=== PATIENT | male | born 1940 | race Caucasian/White ===

== ENCOUNTER 2024-02-27 08:49 | Inpatient (IN) ==
[2024-02-27] MEDS: Furosemide 40 mg/4 ml IV VIAL IV SLOW PU ONE (11:16)
[2024-02-27 11:35] LABS: Hematocrit 26.8 % (38-53); Mean Corpuscular Hemoglobin 39.5 pg (27-33); Mean Corpuscular Hgb Conc 33.5 g/dL (31-36); Mean Corpuscular Volume 117.8 fL (80-97); Red Blood Count 2.28 10^6/uL (4.06-5.63); Red Cell Distribution Width 21.6 % (12-17)
[2024-02-27 12:19] LABS: ABS Lymphocytes 0.3 10^3/uL (1.0-4.8); ABS Monocytes 0.2 10^3/uL (0.0-1.1); ABS Neutrophils 1.5 10^3/uL (1.5-7.6); ABS Nucleated RBC 0.03 10^3/ul; Eosinophil % 0.7 %; Giant Platelets Present; Mean Platelet Volume 8.4 fL (7.5-11.2); Nucleated Red Blood Cells % 1.3 %/100WBC (0.0-0.8); Platelet Count 123 10^3/uL (150-450)
[2024-02-27 12:20] LABS: Albumin 4.1 g/dL (3.5-5.7); Albumin/Globulin Ratio 1.8 (1-3); Calcium 9.1 mg/dL (8.6-10.3); Creatinine, Serum 2.18 mg/dL (0.67-1.17); Globulin 2.3 g/dL (2-4); Potassium 3.8 mmol/L (3.5-5.0); Total Bilirubin 1.3 mg/dL (0.2-1.0); Total Protein 6.4 g/dL (6.4-8.9); eGFR CKD-EPI 29.3 (>60)
[2024-02-27] MEDS ORDERED: Al Hydrox/Mg Hydrox/Simet LIQ 30 ML UDC PO PRN (13:34)
[2024-02-27 13:37] LABS: High Sensitivity Troponin 1 Hr 108 pg/mL (<20)
[2024-02-27] MEDS: Bumetanide IV 0.25 MG/ML 4 ml VIAL (1 mg) IV SLOW PU ONE (16:04)
[2024-02-28 06:47] LABS: Calcium 8.8 mg/dL (8.6-10.3); Creatinine, Serum 1.93 mg/dL (0.67-1.17); Magnesium 2.9 mg/dL (1.9-2.7); eGFR CKD-EPI 33.9 (>60)
[2024-02-28 07:02] LABS: Potassium 3.4 mmol/L (3.5-5.0)
[2024-02-28] MEDS: Aspirin EC 81 mg TAB.EC (enteric coated) PO SCH (08:49)
[2024-02-28] MEDS: oxyCODONE SR 10 mg TAB PO SCH (08:50)
[2024-02-28] MEDS: Potassium Chloride LIQUID 20 MEQ/15 ML LIQUID PO ONE (08:51)
[2024-02-28] MEDS ORDERED: Bumetanide IV 0.25 MG/ML 4 ml VIAL (1 mg) IV SLOW PU SCH (09:00)
[2024-02-28] MEDS: Bumetanide IV 0.25 MG/ML 4 ml VIAL (1 mg) IV SLOW PU SCH (09:27)
[2024-02-29 08:05] LABS: Hematocrit 26.5 % (38-53); Hemoglobin 8.5 g/dL (13.2-16.3); Mean Corpuscular Hemoglobin 38.9 pg (27-33); Mean Corpuscular Hgb Conc 32.1 g/dL (31-36); Mean Corpuscular Volume 121.1 fL (80-97); Mean Platelet Volume 9.5 fL (7.5-11.2); Platelet Count 136 10^3/uL (150-450); Red Blood Count 2.19 10^6/uL (4.06-5.63); Red Cell Distribution Width 21.5 % (12-17); White Blood Count 2.5 10^3/uL (3.6-10.2)
[2024-02-29 08:41] LABS: ABS Lymphocytes 0.4 10^3/uL (1.0-4.8); ABS Monocytes 0.2 10^3/uL (0.0-1.1); ABS Neutrophils 1.9 10^3/uL (1.5-7.6); Anisocytosis 2+; Eosinophil % 0.8 %; Large Platelets Present; Lymphocyte % 15.2 %; Macrocytosis 3+; Nucleated Red Blood Cells % 0.1 %/100WBC (0.0-0.8)
[2024-02-29 08:43] LABS: Anion Gap 9 mmol/L (2-16); Blood Urea Nitrogen 76 mg/dL (6-24); CO2 Carbon Dioxide 31 mmol/L (22-32); Chloride 101 mmol/L (101-111); Creatinine, Serum 1.78 mg/dL (0.67-1.17); Glucose 102 mg/dL (70-100); Magnesium 2.7 mg/dL (1.9-2.7); Sodium 141 mmol/L (135-145); eGFR CKD-EPI 37.4 (>60)
[2024-02-29] MEDS: Chlorothiazide IV 500 mg VIAL IV SCH (09:16)
[2024-02-29] MEDS: Bumetanide IV 0.25 MG/ML 10 ml VIAL (2.5 mg) IV SLOW PU SCH (11:12)
[2024-02-29] MEDS: Bumetanide IV 0.25 MG/ML 4 ml VIAL (1 mg) IV SLOW PU SCH (11:12)
[2024-02-29] MEDS: KCL 20 MEQ/100 ML IVPREMIX 20 MEQ/100 ML BAG IV SCH (13:34)
[2024-03-01] MEDS: Bumetanide 10 MG/40 ML IV DRIP IV SCH (02:49)
[2024-03-01 07:19] LABS: Hematocrit 24.8 % (38-53); Hemoglobin 8.3 g/dL (13.2-16.3); Mean Corpuscular Hemoglobin 39.7 pg (27-33); Mean Corpuscular Hgb Conc 33.4 g/dL (31-36); Mean Corpuscular Volume 118.8 fL (80-97); Mean Platelet Volume 9.1 fL (7.5-11.2); Platelet Count 138 10^3/uL (150-450); Red Blood Count 2.08 10^6/uL (4.06-5.63); Red Cell Distribution Width 21.2 % (12-17); White Blood Count 2.8 10^3/uL (3.6-10.2)
[2024-03-01 07:57] LABS: Creatinine, Serum 1.88 mg/dL (0.67-1.17); Magnesium 2.6 mg/dL (1.9-2.7); Potassium 3.7 mmol/L (3.5-5.0)
[2024-03-01 09:01] LABS: ABS Basophils 0.1 10^3/uL (0.0-0.1); ABS Lymphocytes 0.3 10^3/uL (1.0-4.8); ABS Monocytes 0.3 10^3/uL (0.0-1.1); ABS Neutrophils 2.1 10^3/uL (1.5-7.6); Eosinophil % 0.4 %; Lymphocyte % 12.2 %; Nucleated Red Blood Cells % 0.2 %/100WBC (0.0-0.8)
[2024-03-01] MEDS: Bumetanide IV 10 MG in Premix IV 0 ML IV SCH (15:21)
[2024-03-01] MEDS: Albumin Human 25% 25 GM/100 ML BTL IV SCH (17:06)
[2024-03-01] MEDS: Polyethylene Glycol 3350 17 GM PACKET PO SCH (17:06)
[2024-03-01] MEDS: Potassium Chlor 20 meq TAB.ER PO ONE (17:07)
[2024-03-02] MEDS ORDERED: Lidocaine 2% JELLY 6 ML Topical TOPICAL PRN (02:46)
[2024-03-02] MEDS ORDERED: PAIN RELIEVING RUB (MENTHOL/SALICYLATE) 1 APPLIC TUBE TOPICAL PRN (02:54)
[2024-03-02 07:18] LABS: Albumin 4.1 g/dL (3.5-5.7); Albumin/Globulin Ratio 2.1 (1-3); Calcium 9.1 mg/dL (8.6-10.3); Creatinine, Serum 1.95 mg/dL (0.67-1.17); Magnesium 2.4 mg/dL (1.9-2.7); Potassium 3.6 mmol/L (3.5-5.0); Total Bilirubin 1.3 mg/dL (0.2-1.0); Total Protein 6.1 g/dL (6.4-8.9); eGFR CKD-EPI 33.5 (>60)
[2024-03-02 08:29] LABS: ABS Lymphocytes 0.4 10^3/uL (1.0-4.8); ABS Monocytes 0.2 10^3/uL (0.0-1.1); ABS Neutrophils 1.8 10^3/uL (1.5-7.6); ABS Nucleated RBC 0.01 10^3/ul; Anisocytosis 2+; Eosinophil % 0.6 %; Hematocrit 22.7 % (38-53); Hemoglobin 7.7 g/dL (13.2-16.3); Lymphocyte % 16.6 %; Macrocytosis 2+; Mean Corpuscular Hemoglobin 39.8 pg (27-33); Mean Corpuscular Hgb Conc 33.7 g/dL (31-36); Mean Corpuscular Volume 118.2 fL (80-97); Nucleated Red Blood Cells % 0.3 %/100WBC (0.0-0.8); Platelet Count 123 10^3/uL (150-450); Red Blood Count 1.92 10^6/uL (4.06-5.63); Red Cell Distribution Width 20.9 % (12-17); White Blood Count 2.4 10^3/uL (3.6-10.2)
[2024-03-02] MEDS: Potassium Chlor 20 meq TAB.ER PO ONE (09:29)
[2024-03-02] MEDS: KCL 20 MEQ/100 ML IVPREMIX 20 MEQ/100 ML BAG IV ONE (09:37)
[2024-03-02] MEDS ORDERED: NS 0.9% 1000 ml BAG 200 ML IV PRN (13:59)
[2024-03-02] MEDS ORDERED: NS 0.9% 1000 ml BAG 100 ML IV PRN (13:59)
[2024-03-02 15:16] LABS: Hepatitis B Surface Ab Not Immune (Immune)
[2024-03-02] MEDS: Heparin 1,000 UNIT/ML 10 ml (10,000 UNITS) CATHLAB/DIALYSIS DIALYSIS PRN (17:00)
[2024-03-03 08:08] LABS: Calcium 9.3 mg/dL (8.6-10.3); Creatinine, Serum 2.2 mg/dL (0.67-1.17); Magnesium 2.2 mg/dL (1.9-2.7); Potassium 4.1 mmol/L (3.5-5.0)
[2024-03-03 08:31] LABS: Hematocrit 23.2 % (38-53); Hemoglobin 7.5 g/dL (13.2-16.3); Mean Corpuscular Hgb Conc 32.3 g/dL (31-36); Mean Corpuscular Volume 120.6 fL (80-97); Mean Platelet Volume 9.9 fL (7.5-11.2); Platelet Count 113 10^3/uL (150-450); Red Blood Count 1.92 10^6/uL (4.06-5.63); Red Cell Distribution Width 20.8 % (12-17); White Blood Count 3.2 10^3/uL (3.6-10.2)
[2024-03-03 08:34] LABS: Anisocytosis 2+; Basophilic Stippling 1+; Macrocytosis 3+; Polychromasia 1+
[2024-03-03 08:37] LABS: ABS Lymphocytes 0.3 10^3/ul (1.0-4.8); ABS Monocytes 0.3 10^3/ul (0.0-1.1); ABS Neutrophils 2.6 10^3/ul (1.5-7.6)
[2024-03-03 13:04] LABS: Hepatitis B Surface Antigen Nonreactive (Nonreactive)
[2024-03-03] MEDS: Bumetanide IV 0.25 MG/ML 4 ml VIAL (1 mg) IV SLOW PU SCH (13:28)
[2024-03-04 06:52] LABS: Calcium 9.6 mg/dL (8.6-10.3); Creatinine, Serum 2.8 mg/dL (0.67-1.17); Hematocrit 22.3 % (38-53); Hemoglobin 7.4 g/dL (13.2-16.3); Magnesium 2.2 mg/dL (1.9-2.7); Mean Corpuscular Hemoglobin 39.7 pg (27-33); Mean Corpuscular Hgb Conc 33.2 g/dL (31-36); Mean Corpuscular Volume 119.4 fL (80-97); Mean Platelet Volume 9.7 fL (7.5-11.2); Platelet Count 98 10^3/uL (150-450); Potassium 4.2 mmol/L (3.5-5.0); Red Blood Count 1.87 10^6/uL (4.06-5.63); Red Cell Distribution Width 20.4 % (12-17); White Blood Count 3.1 10^3/uL (3.6-10.2); eGFR CKD-EPI 21.7 (>60)
[2024-03-04 08:25] LABS: ABS Basophils 0.1 10^3/uL (0.0-0.1); ABS Lymphocytes 0.4 10^3/uL (1.0-4.8); ABS Monocytes 0.4 10^3/uL (0.0-1.1); ABS Neutrophils 2.3 10^3/uL (1.5-7.6); Anisocytosis 2+; Eosinophil % 0.5 %; Lymphocyte % 12.9 %; Macrocytosis 2+; Nucleated Red Blood Cells % 0.1 %/100WBC (0.0-0.8)
[2024-03-04] MEDS: Albumin Human 25% 25 GM/100 ML BTL IV PRN (10:36)
[2024-03-05 05:51] LABS: ABS Lymphocytes 0.4 10^3/uL (1.0-4.8); ABS Monocytes 0.3 10^3/uL (0.0-1.1); ABS Neutrophils 2.4 10^3/uL (1.5-7.6); ABS Nucleated RBC 0.02 10^3/ul; Eosinophil % 0.4 %; Hematocrit 21.7 % (38-53); Hemoglobin 7.2 g/dL (13.2-16.3); Lymphocyte % 12.4 %; Mean Corpuscular Hemoglobin 39.7 pg (27-33); Mean Corpuscular Hgb Conc 33.1 g/dL (31-36); Mean Corpuscular Volume 119.8 fL (80-97); Mean Platelet Volume 9.9 fL (7.5-11.2); Nucleated Red Blood Cells % 0.6 %/100WBC (0.0-0.8); Platelet Count 85 10^3/uL (150-450); Red Blood Count 1.81 10^6/uL (4.06-5.63); Red Cell Distribution Width 20.2 % (12-17); White Blood Count 3.2 10^3/uL (3.6-10.2)
[2024-03-05 06:03] LABS: Calcium 9.1 mg/dL (8.6-10.3); Creatinine, Serum 2.93 mg/dL (0.67-1.17); Magnesium 1.9 mg/dL (1.9-2.7); Potassium 4.2 mmol/L (3.5-5.0); eGFR CKD-EPI 20.6 (>60)
[2024-03-06 07:22] LABS: ABS Basophils 0.1 10^3/uL (0.0-0.1); ABS Lymphocytes 0.3 10^3/uL (1.0-4.8); ABS Monocytes 0.3 10^3/uL (0.0-1.1); ABS Neutrophils 2.3 10^3/uL (1.5-7.6); ABS Nucleated RBC 0.01 10^3/ul; Eosinophil % 0.8 %; Hematocrit 21.6 % (38-53); Hemoglobin 7.1 g/dL (13.2-16.3); Lymphocyte % 9.3 %; Mean Corpuscular Hemoglobin 39.1 pg (27-33); Mean Corpuscular Hgb Conc 32.9 g/dL (31-36); Mean Corpuscular Volume 118.9 fL (80-97); Mean Platelet Volume 10.1 fL (7.5-11.2); Nucleated Red Blood Cells % 0.4 %/100WBC (0.0-0.8); Platelet Count 87 10^3/uL (150-450); Red Blood Count 1.82 10^6/uL (4.06-5.63); Red Cell Distribution Width 20.4 % (12-17); White Blood Count 2.9 10^3/uL (3.6-10.2)
[2024-03-06 07:28] LABS: Calcium 9.4 mg/dL (8.6-10.3); Creatinine, Serum 3.6 mg/dL (0.67-1.17); Potassium 4.1 mmol/L (3.5-5.0); eGFR CKD-EPI 16.1 (>60)
[2024-03-06 09:13] LABS: INR 1.28 (0.85-1.14)
[2024-03-06] MEDS: Bumetanide IV 0.25 MG/ML 4 ml VIAL (1 mg) IV SLOW PU SCH (21:01)
[2024-03-07 06:47] LABS: Calcium 9.9 mg/dL (8.6-10.3); Creatinine, Serum 3.47 mg/dL (0.67-1.17); Magnesium 1.9 mg/dL (1.9-2.7); Potassium 4.3 mmol/L (3.5-5.0); eGFR CKD-EPI 16.8 (>60)
[2024-03-07 07:30] LABS: ABS Lymphocytes 0.3 10^3/uL (1.0-4.8); ABS Monocytes 0.2 10^3/uL (0.0-1.1); ABS Neutrophils 1.7 10^3/uL (1.5-7.6); Eosinophil % 1.6 %; Hematocrit 20.5 % (38-53); Hemoglobin 6.9 g/dL (13.2-16.3); Lymphocyte % 14.2 %; Mean Corpuscular Hgb Conc 33.7 g/dL (31-36); Mean Corpuscular Volume 118.5 fL (80-97); Mean Platelet Volume 10.3 fL (7.5-11.2); Nucleated Red Blood Cells % 0.2 %/100WBC (0.0-0.8); Platelet Count 85 10^3/uL (150-450); Red Blood Count 1.73 10^6/uL (4.06-5.63); Red Cell Distribution Width 19.7 % (12-17); White Blood Count 2.4 10^3/uL (3.6-10.2)
[2024-03-07] MEDS: ceFAZolin 1 GM ADVAN 1 GM ADDV.VIAL IVPB ONE (15:28)
[2024-03-07] MEDS: fentaNYL 100 mcg/2 ml 50 MCG/ML VIAL ONE (15:28)
[2024-03-07 20:08] LABS: Hematocrit 24.7 % (38-53); Hemoglobin 8.2 g/dL (13.2-16.3)
[2024-03-08 07:13] LABS: Calcium 9.4 mg/dL (8.6-10.3); Creatinine, Serum 3.27 mg/dL (0.67-1.17); Magnesium 1.9 mg/dL (1.9-2.7); Potassium 4.2 mmol/L (3.5-5.0)
[2024-03-08 09:01] LABS: ABS Lymphocytes 0.4 10^3/uL (1.0-4.8); ABS Monocytes 0.2 10^3/uL (0.0-1.1); ABS Neutrophils 1.9 10^3/uL (1.5-7.6); ABS Nucleated RBC 0.01 10^3/ul; Anisocytosis 2+; Eosinophil % 1.3 %; Hematocrit 24.2 % (38-53); Hemoglobin 8.2 g/dL (13.2-16.3); Lymphocyte % 14.5 %; Macrocytosis 2+; Mean Corpuscular Hemoglobin 38.6 pg (27-33); Mean Corpuscular Hgb Conc 33.8 g/dL (31-36); Mean Corpuscular Volume 114.3 fL (80-97); Mean Platelet Volume 10.1 fL (7.5-11.2); Nucleated Red Blood Cells % 0.5 %/100WBC (0.0-0.8); Platelet Count 94 10^3/uL (150-450); Red Blood Count 2.12 10^6/uL (4.06-5.63); Red Cell Distribution Width 24.8 % (12-17); White Blood Count 2.5 10^3/uL (3.6-10.2)
[2024-03-08] MEDS ORDERED: Chlorothiazide IV 500 mg VIAL IV SCH (11:00)
[2024-03-08] MEDS ORDERED: Chlorothiazide IV 500 MG in NS 0.9% 50 ML 50 ML IV SCH (12:00)
[2024-03-08] MEDS: Iodixanol 320 (CONTRAST) 100 ML SDV IV ONE (13:01)
[2024-03-08 14:02] LABS: Phosphorus 4.9 mg/dL (2.5-5.0)
[2024-03-09 06:10] LABS: ABS Lymphocytes 0.3 10^3/uL (1.0-4.8); ABS Monocytes 0.3 10^3/uL (0.0-1.1); ABS Neutrophils 1.8 10^3/uL (1.5-7.6); ABS Nucleated RBC 0.01 10^3/ul; Eosinophil % 0.6 %; Hematocrit 24.6 % (38-53); Hemoglobin 8.2 g/dL (13.2-16.3); Lymphocyte % 14.2 %; Mean Corpuscular Hemoglobin 37.5 pg (27-33); Mean Corpuscular Hgb Conc 33.2 g/dL (31-36); Mean Corpuscular Volume 113.1 fL (80-97); Mean Platelet Volume 10.4 fL (7.5-11.2); Nucleated Red Blood Cells % 0.4 %/100WBC (0.0-0.8); Platelet Count 86 10^3/uL (150-450); Red Blood Count 2.17 10^6/uL (4.06-5.63); Red Cell Distribution Width 24.2 % (12-17); White Blood Count 2.4 10^3/uL (3.6-10.2)
[2024-03-09 06:22] LABS: Calcium 9.5 mg/dL (8.6-10.3); Creatinine, Serum 3.65 mg/dL (0.67-1.17); Potassium 3.9 mmol/L (3.5-5.0); eGFR CKD-EPI 15.8 (>60)
[2024-03-11 09:05] LABS: Calcium 9.4 mg/dL (8.6-10.3); Creatinine, Serum 3.52 mg/dL (0.67-1.17); Potassium 4.1 mmol/L (3.5-5.0); eGFR CKD-EPI 16.5 (>60)
[2024-03-11] MEDS ORDERED: NS 0.9% 1000 ml BAG 100 ML IV PRN (23:39)
[2024-03-11] MEDS ORDERED: NS 0.9% 1000 ml BAG 200 ML IV PRN (23:39)
[2024-03-12] MEDS: Heparin 1,000 UNIT/ML 10 ml (10,000 UNITS) CATHLAB/DIALYSIS DIALYSIS PRN (08:50)
[2024-03-12] MEDS: Albumin Human 25% 25 GM/100 ML BTL IV PRN (09:09)
[2024-03-12 13:06] VITALS: BP 90/49
== END 2024-03-12 15:14 | disposition home or self-care (01) | DRG 640 ==
LOC: EDHOLD 08:49 → ED 08:49 → OBSVTOIN 13:34 → INTOOBSV 13:34 → MEDTELE 15:58 → SUATTDRO 02-29 11:59 → MEDTELE 02-29 12:00
PROVIDERS: ADMIT Internal Medicine; ATTEND Student in an Organized Health Care Education/Training Program